=== PATIENT | female | born 1940 | race Caucasian/White ===

== ENCOUNTER 2017-06-10 08:09 | Day surgery (SDC) | payer MEDICARE ==
[2017-06-10] MEDS ORDERED: LORazepam 1 MG TAB SL (08:45)
[2017-06-10] MEDS ORDERED: Hold AM Insulin & AM Hypoglycemic medications in diabetic patients (08:45)
[2017-06-10] MEDS ORDERED: LACTATED RINGER'S 1000 ML IV (09:00)
[2017-06-10] MEDS ORDERED: SODIUM CHLORID 0.9% 500 ML IV (09:00)
[2017-06-10] MEDS ORDERED: METOPROLOL TARTRATE 25 MG TAB PO (09:00)
[2017-06-10 09:32] LABS: AUTOMATED NEUTROPHIL # 4.3 TH/MM3 (1.8-7.7); BASOPHIL % 0.4 % (0.0-2.0); EOSINOPHIL # 0.1 TH/MM3 (0-0.4); EOSINOPHIL % 1.5 % (0.0-4.0); HEMATOCRIT 36.4 % (35.0-46.0); HEMO FLAGS DIFF FINAL; HEMOGLOBIN 12.1 GM/DL (11.6-15.3); LYMPH % 23.6 % (9.0-44.0); LYMPHOCYTE # 1.5 TH/MM3 (1.0-4.8); MEAN CELL VOLUME 86.4 FL (80.0-100.0); MEAN CORPUSCULAR HEMOGLOBIN 28.6 PG (27.0-34.0); MEAN CORPUSCULAR HGB CONC 33.1 % (32.0-36.0); MEAN PLATELET VOLUME 9.6 FL (7.0-11.0); MONO % 7.3 % (0.0-8.0); MONOCYTE # 0.5 TH/MM3 (0-0.9); NEUT % 67.2 % (16.0-70.0); PLATELET COUNT 203 TH/MM3 (150-450); RED BLOOD COUNT 4.21 MIL/MM3 (4.00-5.30); WHITE BLOOD COUNT 6.4 TH/MM3 (4.0-11.0)
[2017-06-10 09:38] LABS: APTT (PATIENT) 23.1 SEC (24.3-30.1); INTERNATIONAL NORMALIZED RATIO 1.1 RATIO; PROTHROMBIN TIME - PATIENT 10.7 SEC (9.8-11.6)
[2017-06-10 09:43] LABS: ANION GAP 11 MEQ/L (5-15); BICARBONATE 27.5 MEQ/L (21.0-32.0); BLOOD UREA NITROGEN 27 MG/DL (7-18); CHLORIDE 100 MEQ/L (98-107); CREATININE 1.31 MG/DL (0.50-1.00); GLOMERULAR FILTRATION RATE 40 ML/MIN (>89); GLUCOSE,RANDOM 223 MG/DL (74-106); POTASSIUM 4.1 MEQ/L (3.5-5.1); SODIUM (NA) 138 MEQ/L (136-145)
[2017-06-10] MEDS: MUPIROCIN 2% OINT 1 APPLIC/GM SYR NASAL (09:54)
[2017-06-10] MEDS: CHLORHEXIDINE GLUCONATE 2 % 1 PACK (2 CLOTHS) TOPICAL (09:54)
[2017-06-10] MEDS: VANCOMYCIN 1000 MG/NS 250 ML IV (11:33)
[2017-06-10] MEDS: ceFAZolin 2 GM PREMIX 50 ML IV ×2 (11:33→18:25)
[2017-06-10] MEDS: ePHEDrine/NS 25 MG/5 ML SYRINGE IV (12:00)
[2017-06-10] MEDS: PROPOFOL 200 MG/20 ML AMP IV (12:00)
[2017-06-10] MEDS: LIDOCAINE HCL 1% PF 5 ML SYRINGE OTHER (12:00)
[2017-06-10] MEDS: ONDANSETRON HCL 4 MG/2 ML VIAL IV (12:00)
[2017-06-10] MEDS ORDERED: RESP: ALBUTEROL 0.63 MG/3 ML NEB (PRN) NEB (13:45)
[2017-06-10] MEDS ORDERED: ACETAMINOPHEN/CODEINE 300 MG/30 MG TAB PO (13:45)
[2017-06-10] MEDS ORDERED: SODIUM CHLORIDE 0.9% FLUSH 10 ML FLUSH IV FLUSH (13:45)
[2017-06-10] MEDS ORDERED: DO NOT ADM ANY ANTICOAGULANT DRUGS (14:50)
[2017-06-10] MEDS: metFORMIN HCL 500 MG TAB PO (18:00)
[2017-06-10] MEDS: GABAPENTIN 300 MG CAP PO (18:24)
[2017-06-10] MEDS: ACETAMINOPHEN/CODEINE 300 MG/30 MG TAB PO (20:59)
[2017-06-10] MEDS: FUROSEMIDE 40 MG TAB PO (20:59)
[2017-06-10] MEDS: CARVEDILOL 6.25 MG TAB PO ×2 (21:00→21:02)
[2017-06-10] MEDS: ATORVASTATIN 80 MG TAB PO (21:00)
[2017-06-10] MEDS: SODIUM CHLORIDE 0.9% FLUSH 10 ML FLUSH IV FLUSH (21:02)
[2017-06-11] MEDS: ceFAZolin 2 GM PREMIX 50 ML IV ×2 (04:26→10:16)
[2017-06-11] MEDS: ACETAMINOPHEN/CODEINE 300 MG/30 MG TAB PO (08:06)
[2017-06-11] MEDS: MULTIVITAMIN TAB PO (08:06)
[2017-06-11] MEDS: GABAPENTIN 300 MG CAP PO ×3 (08:06→17:33)
[2017-06-11] MEDS: SACUBITRIL/VALSARTAN 24 MG-26 MG TAB PO (08:07)
[2017-06-11] MEDS: ASPIRIN EC 81 MG TABEC PO (08:07)
[2017-06-11] MEDS: FUROSEMIDE 40 MG TAB PO ×2 (08:07→21:00)
[2017-06-11] MEDS: CLOPIDOGREL 75 MG TAB PO (08:08)
[2017-06-11] MEDS: SODIUM CHLORIDE 0.9% FLUSH 10 ML FLUSH IV FLUSH ×2 (08:09→21:49)
[2017-06-11] MEDS: metFORMIN HCL 500 MG TAB PO ×2 (08:12→15:53)
[2017-06-11] MEDS: NS 1000 ML IV (08:12)
[2017-06-11] MEDS: NIFEdipine 60 MG SUSTAINED RELEASE TAB PO (08:54)
[2017-06-11] MEDS: CARVEDILOL 6.25 MG TAB PO ×2 (08:54→21:00)
[2017-06-11] MEDS: ATORVASTATIN 80 MG TAB PO (21:45)
[2017-06-11] MEDS ORDERED: DEXTROSE 50% IN WATER 50 ML VIAL(D50) IV PUSH (23:15)
[2017-06-11] MEDS ORDERED: GLUCAGON 1 MG/ML VIAL OTHER (23:15)
[2017-06-11] MEDS: MEDIUM DOSE INSULIN NOVOLOG SUPPLEMENTAL SCALE SQ (23:28)
[2017-06-12] MEDS ORDERED: INSULIN ASPART SUPPLEMENTAL SCALE SQ (08:00)
[2017-06-12] MEDS: MEDIUM DOSE INSULIN NOVOLOG SUPPLEMENTAL SCALE SQ ×2 (08:00→12:00)
[2017-06-12] MEDS: MULTIVITAMIN TAB PO (08:29)
[2017-06-12] MEDS: GABAPENTIN 300 MG CAP PO ×3 (08:29→17:13)
[2017-06-12] MEDS: ASPIRIN EC 81 MG TABEC PO (08:30)
[2017-06-12] MEDS: CLOPIDOGREL 75 MG TAB PO (08:31)
[2017-06-12] MEDS: NS 1000 ML IV (08:32)
[2017-06-12] MEDS: CARVEDILOL 6.25 MG TAB PO (08:40)
[2017-06-12] MEDS: FUROSEMIDE 40 MG TAB PO ×2 (08:40→21:00)
[2017-06-12] MEDS: SACUBITRIL/VALSARTAN 24 MG-26 MG TAB PO (08:40)
[2017-06-12] MEDS: NIFEdipine 30 MG SUSTAINED RELEASE TAB PO (08:41)
[2017-06-12] MEDS: metFORMIN HCL 500 MG TAB PO ×2 (08:41→17:13)
[2017-06-12] MEDS: SODIUM CHLORIDE 0.9% FLUSH 10 ML FLUSH IV FLUSH ×2 (08:45→21:00)
[2017-06-12] MEDS ORDERED: DEXTROSE 50% IN WATER 50 ML VIAL(D50) IV PUSH (09:00)
[2017-06-12] MEDS ORDERED: GLUCAGON 1 MG/ML VIAL OTHER (09:00)
[2017-06-12] MEDS: INSULIN DETEMIR 100 UNITS/ML VIAL SQ ×2 (10:30→21:00)
[2017-06-12] MEDS: INSULIN ASPART SUPPLEMENTAL SCALE SQ ×3 (12:00→21:00)
[2017-06-12] MEDS: CARVEDILOL 3.125 MG TAB PO (21:00)
[2017-06-12] MEDS: ATORVASTATIN 80 MG TAB PO (21:06)
[2017-06-13] MEDS: INSULIN ASPART SUPPLEMENTAL SCALE SQ ×4 (08:00→21:13)
[2017-06-13] MEDS: NS 1000 ML IV (08:45)
[2017-06-13] MEDS: SACUBITRIL/VALSARTAN 24 MG-26 MG TAB PO ×2 (09:00→14:08)
[2017-06-13] MEDS: MULTIVITAMIN TAB PO (09:00)
[2017-06-13] MEDS: CLOPIDOGREL 75 MG TAB PO (09:00)
[2017-06-13] MEDS: SODIUM CHLORIDE 0.9% FLUSH 10 ML FLUSH IV FLUSH ×2 (09:00→21:12)
[2017-06-13] MEDS: ASPIRIN EC 81 MG TABEC PO (09:00)
[2017-06-13] MEDS: INSULIN DETEMIR 100 UNITS/ML VIAL SQ ×2 (09:00→21:13)
[2017-06-13] MEDS: FUROSEMIDE 40 MG TAB PO ×2 (09:00→21:00)
[2017-06-13] MEDS: CARVEDILOL 3.125 MG TAB PO ×3 (09:00→21:00)
[2017-06-13] MEDS: GABAPENTIN 300 MG CAP PO ×3 (09:00→17:41)
[2017-06-13] MEDS: metFORMIN HCL 500 MG TAB PO ×2 (09:00→17:42)
[2017-06-13] MEDS: ONDANSETRON HCL 4 MG/2 ML VIAL IV PUSH (10:30)
[2017-06-13] MEDS: ATORVASTATIN 80 MG TAB PO (21:12)
[2017-06-14] MEDS: NS 1000 ML IV (08:45)
[2017-06-14] MEDS: INSULIN ASPART SUPPLEMENTAL SCALE SQ ×4 (10:12→20:42)
[2017-06-14] MEDS: MULTIVITAMIN TAB PO (10:12)
[2017-06-14] MEDS: INSULIN DETEMIR 100 UNITS/ML VIAL SQ ×2 (10:12→20:42)
[2017-06-14] MEDS: metFORMIN HCL 500 MG TAB PO ×2 (10:12→17:04)
[2017-06-14] MEDS: GABAPENTIN 300 MG CAP PO ×3 (10:12→17:04)
[2017-06-14] MEDS: FUROSEMIDE 40 MG TAB PO ×2 (10:13→20:42)
[2017-06-14] MEDS: SACUBITRIL/VALSARTAN 24 MG-26 MG TAB PO (10:13)
[2017-06-14] MEDS: CLOPIDOGREL 75 MG TAB PO (10:13)
[2017-06-14] MEDS: ASPIRIN EC 81 MG TABEC PO (10:13)
[2017-06-14] MEDS: SODIUM CHLORIDE 0.9% FLUSH 10 ML FLUSH IV FLUSH ×2 (10:14→20:41)
[2017-06-14] MEDS: CARVEDILOL 3.125 MG TAB PO ×2 (10:14→20:42)
[2017-06-14] MEDS: ATORVASTATIN 80 MG TAB PO (20:42)
[2017-06-15] MEDS: ACETAMINOPHEN/CODEINE 300 MG/30 MG TAB PO (00:19)
[2017-06-15] MEDS: INSULIN ASPART SUPPLEMENTAL SCALE SQ ×4 (08:00→20:38)
[2017-06-15] MEDS: SODIUM CHLORIDE 0.9% FLUSH 10 ML FLUSH IV FLUSH ×2 (08:40→20:37)
[2017-06-15] MEDS: NS 1000 ML IV (08:40)
[2017-06-15] MEDS: CARVEDILOL 3.125 MG TAB PO ×3 (08:41→20:37)
[2017-06-15] MEDS: ASPIRIN EC 81 MG TABEC PO (08:41)
[2017-06-15] MEDS: metFORMIN HCL 500 MG TAB PO ×2 (08:41→17:13)
[2017-06-15] MEDS: GABAPENTIN 300 MG CAP PO ×3 (08:41→17:13)
[2017-06-15] MEDS: CLOPIDOGREL 75 MG TAB PO (08:42)
[2017-06-15] MEDS: SACUBITRIL/VALSARTAN 24 MG-26 MG TAB PO (08:42)
[2017-06-15] MEDS: MULTIVITAMIN TAB PO (08:42)
[2017-06-15] MEDS: FUROSEMIDE 40 MG TAB PO ×3 (08:42→20:37)
[2017-06-15] MEDS: INSULIN DETEMIR 100 UNITS/ML VIAL SQ ×2 (08:42→20:37)
[2017-06-15] MEDS: ATORVASTATIN 80 MG TAB PO (20:37)
[2017-06-16] MEDS: GABAPENTIN 300 MG CAP PO ×3 (08:04→17:13)
[2017-06-16] MEDS: MULTIVITAMIN TAB PO (08:04)
[2017-06-16] MEDS: ASPIRIN EC 81 MG TABEC PO (08:04)
[2017-06-16] MEDS: metFORMIN HCL 500 MG TAB PO ×2 (08:04→17:13)
[2017-06-16] MEDS: CARVEDILOL 3.125 MG TAB PO ×2 (08:05→21:00)
[2017-06-16] MEDS: CLOPIDOGREL 75 MG TAB PO (08:05)
[2017-06-16] MEDS: NS 1000 ML IV (08:05)
[2017-06-16] MEDS: INSULIN ASPART SUPPLEMENTAL SCALE SQ ×4 (08:05→21:35)
[2017-06-16] MEDS: SACUBITRIL/VALSARTAN 24 MG-26 MG TAB PO (08:06)
[2017-06-16] MEDS: FUROSEMIDE 40 MG TAB PO (08:06)
[2017-06-16] MEDS: INSULIN DETEMIR 100 UNITS/ML VIAL SQ ×2 (08:06→21:00)
[2017-06-16] MEDS: SODIUM CHLORIDE 0.9% FLUSH 10 ML FLUSH IV FLUSH ×2 (08:08→21:00)
[2017-06-16] MEDS: IOHEXOL 350 MG/ML 50 ML BTL (for Cath Lab) OTHER (19:30)
[2017-06-16] MEDS: LIDOCAINE HCL 1% PF 30 ML VIAL (19:31)
[2017-06-16] MEDS: VANCOMYCIN 500 MG VIAL (19:31)
[2017-06-16] MEDS: LIDOCAINE HCL 2% 20 ML VIAL ×2 (19:31→19:32)
[2017-06-16] MEDS: HEPARIN-NS/PF FLUSH BAG 1,000 ML IV FLUSH (19:31)
[2017-06-16] MEDS: FAMOTIDINE 20 MG/2 ML VIAL (19:32)
[2017-06-16] MEDS: HEPARIN SODIUM - IV 10,000 UNITS/10 ML VIAL (19:32)
[2017-06-16] MEDS: diphenhydrAMINE HCL 50 MG/ML VIAL (19:32)
[2017-06-16] MEDS: HYDROCORTISONE SOD SUCCINATE 100 MG VIAL (19:32)
[2017-06-16] MEDS: ATORVASTATIN 80 MG TAB PO (21:00)
[2017-06-17] MEDS: INSULIN ASPART SUPPLEMENTAL SCALE SQ (07:13)
[2017-06-17] MEDS: INSULIN DETEMIR 100 UNITS/ML VIAL SQ (07:54)
[2017-06-17] MEDS: GABAPENTIN 300 MG CAP PO (07:55)
[2017-06-17] MEDS: metFORMIN HCL 500 MG TAB PO (07:55)
[2017-06-17] MEDS: ASPIRIN EC 81 MG TABEC PO (07:55)
[2017-06-17] MEDS: CLOPIDOGREL 75 MG TAB PO (07:55)
[2017-06-17] MEDS: SODIUM CHLORIDE 0.9% FLUSH 10 ML FLUSH IV FLUSH (07:56)
[2017-06-17] MEDS: NS 1000 ML IV (07:56)
[2017-06-17] MEDS: CARVEDILOL 3.125 MG TAB PO (07:56)
[2017-06-17] MEDS: FUROSEMIDE 40 MG TAB PO (07:56)
[2017-06-17] MEDS: SACUBITRIL/VALSARTAN 24 MG-26 MG TAB PO (07:56)
[2017-06-17] MEDS: MULTIVITAMIN TAB PO (07:56)
== END 2017-06-17 10:30 | disposition home health service (06) ==
LOC: HDOC 08:09 → HDIC 08:09 → HCPC 18:07
DX: I11.0 Hypertensive heart disease with heart failure (principal); I50.9 Heart failure, unspecified; I42.0 Dilated cardiomyopathy; I25.5 Ischemic cardiomyopathy; I47.2 Ventricular tachycardia; I45.89 Other specified conduction disorders; I49.3 Ventricular premature depolarization; R06.02 Shortness of breath; I25.10 Atherosclerotic heart disease of native coronary artery without angina pectoris; I73.9 Peripheral vascular disease, unspecified; R53.83 Other fatigue; E11.9 Type 2 diabetes mellitus without complications; G47.33 Obstructive sleep apnea (adult) (pediatric); Z87.891 Personal history of nicotine dependence; Z79.82 Long term (current) use of aspirin; Z79.84 Long term (current) use of oral hypoglycemic drugs; Z79.01 Long term (current) use of anticoagulants
CPT/HCPCS: 00530; 33225; 33249; 71045; 80048; 82948; 85025; 85610; 85730; 86850; 86900; 86901; 93005; 93620; 97110-GP; 97116-GP; 97162-GP; 97530-GP

== ENCOUNTER 2017-10-02 05:49 | Inpatient (IN) ==
[2017-10-02] MEDS ORDERED: ceFAZolin 2 GM Premix Inj 2 GM/100 ML BAG IV.SIG ONE (06:20)
[2017-10-02] MEDS ORDERED: Sugammadex Inj 200 MG/2 ML Vial IV.PUSH ONE (06:24)
[2017-10-02] MEDS ORDERED: Sodium Chloride 0.9% Irr Bot 500 ML, ceFAZolin Inj 500 MG IRRIGATION SCH ×2 (06:45)
[2017-10-02] MEDS ORDERED: Chlorhexidine 4% Topical 120 APPLIC/120 ML Bottle TOPICAL SCH (06:45)
[2017-10-02] MEDS ORDERED: ceFAZolin Inj 2,000 MG in Sodium Chlor 0.9% Inj 80 ML IV.SIG SCH (07:00)
[2017-10-02] MEDS ORDERED: Chlorhexidine Gluconate 2% 1 Pack (2 Cloths) TOPICAL SCH (07:15)
[2017-10-02] MEDS ORDERED: Metoprolol Tartrate 25 MG Tablet PO SCH (07:15)
[2017-10-02] MEDS ORDERED: Sodium Chlor 0.9% Inj 500 ML IV.SIG SCH (08:00)
[2017-10-02] MEDS ORDERED: Bisacodyl 10 MG Supp RECTAL PRN (10:26)
[2017-10-02] MEDS ORDERED: Acetaminophen 325 MG Tablet PO PRN (10:26)
[2017-10-02] MEDS ORDERED: Post-op Orders (for Pharmacy) OTHER STA (10:26)
--- NOTE | 2017-10-02 10:41 | P.OP ---
Date of procedure: 10/02/17 Anesthesia: GETA Surgeon: Vivek Barnett MD Operation and Findings: PREOPERATIVE DIAGNOSIS 1. Cardiomyopathy 2. CHF 3. Severe Left Ventricular Dysfunction 4. Diabetes mellitus 5. Coronary artery disease status post coronary artery bypass grafting 6. Morbid obesity POSTOPERATIVE DIAGNOSIS same PROCEDURES 1. Left Lateral Mini-Thoracotomy 2. Epicardial Left Ventricular Lead Placement 3. Lysis of Myocardial Adhesions 4. Intercostal nerve Block. SURGEON Vivek Barnett MD BALLOON DIPPER Gisselle Teixeira [facility] General Double-lumen endotracheal. SUBASSEMBLER HALEY Treadwell MD OPERATIVE TIME Please see record. COMPLICATIONS None. INDICATION FOR PROCEDURE The patient is a 76yo lady with cardiomyopathy, CAD s/p previous CABG and recurrent CHF who is being brought to the operating room for epicardial left ventricular lead placement following attempted percutaneous CS lead placement. DESCRIPTION OF PROCEDURE The patient was brought to the operating suite and placed in supine position with the left chest slightly elevated. Following satisfactory induction of general endotracheal anesthesia, the patient was prepped and draped in the usual sterile fashion. A mini-thoracotomy (5 cm) was then performed in the 4th ICS anterior axillary line and carried down to the pleura. With gentle sharp and blunt dissection, the left pleural space was entered. The pericardium was identified. The densely adherent lung was dissected free from the pericardial surface. The pericardium was opened and the underlying myocardium dissected free with careful lysis of adhesions from the previous CABG with care being taken to avoid direct or traction injury to the neurovascular bundle, and viable left ventricular muscle identified. A [employer] LV screw in lead was placed on the ventricular surface. Serial #[id number], REF # [id number]. Parameters measured were excellent with threshold of 0.9 v at 0.4 ms and impedance of 476 ohms. The previously closed infraclavicular incision was opened and the pocket irrigated with antibiotic solution. The leads to the old generator device were removed and the new device brought into the surgical field. The new device was a [employer] serial #[id number], REF #[id number]. The epicardial lead was tunneled and connected to the generator device as were the other leads. The coronary sinus lead was capped and buried in place. The generator was anchored into the pocket using an interrupted 2-0 Ethibond stitch. Strict hemostasis was assured and the closure undertaken. A #24-Sami Florentino drain was placed in the pleural space. Intercostal nerve block was performed at the level of the incision and 2 rib spaces above and below using Exparel solution. The intercostal space was reapproximated with a single #2 Vicryl stitch. Wounds were closed with 2-0, 3-0, and 4-0 Monocryl. The patient tolerated the procedure well and postoperatively went to recovery in stable condition.
[2017-10-02] MEDS ORDERED: fentaNYL Citrate Inj 100 MCG/2 ML Ampul ONE (11:20)
[2017-10-02] MEDS ORDERED: *morphine SULFATE 4 MG/ML PERIprocedure ONLY ONE (11:39)
--- NOTE | 2017-10-02 11:49 | XR ---
EXAM DATE: 10/02/2017 11:40 AM EDT AGE/SEX: 76 years / Female INDICATIONS: Post thoracotomy. CLINICAL DATA: This is the patient's initial encounter. Patient reports that signs and symptoms have been present for 1 day and indicates a pain score of 8/10. MEDICAL/SURGICAL HISTORY: None. Pacemaker. [place] [facility] [facility] [place]. . FINDINGS: Multilead AICD/pacemaker in place with postsurgical features of prior median sternotomy. Cardiac silh ouette is enlarged with indistinct central pulmonary vascularity. Mild diffuse interstitial prominenc e with minimal left lower lobe airspace disease. Remainder of exam is unchanged. CONCLUSION: 1. Cardiomegaly with mild positive fluid balance. 2. No significant pneumothorax. 3. Left lower lobe airspace disease, likely atelectasis. Electronically signed by: Saw Best MD 10/02/2017 11:47 AM EDT
[2017-10-02] MEDS ORDERED: Neostigmine Inj 5 MG/5 ML Syringe IV.PUSH ONE (12:00)
[2017-10-02] MEDS ORDERED: Glycopyrrolate Inj 1 MG/5 ML Syringe IV.PUSH ONE (12:00)
[2017-10-02] MEDS ORDERED: Lidocaine PF 1% Inj 5 ML Syringe INFILTRATN ONE (12:00)
[2017-10-02] MEDS ORDERED: Phenylephrine/NS 1000 MCG/10ML Syringe IV.PUSH ONE (12:00)
[2017-10-02] MEDS: Ketorolac Inj 30 MG/ML (IVP) Vial IV.PUSH SCH ×2 (12:11→17:50)
--- NOTE | 2017-10-02 14:47 | P.PNCV ---
- Note Subjective/Hospital Course: 76/ female initially seen 09/18/17 who was then admitted for biventricular pacer defibrillator , removal, biventricular pacer defibrillator replacement, atrial lead extraction, RV lead extraction, LV lead extraction with new RV lead, new LV lead insertion on 09/17/2017. patient has a history of congestive heart failure with ejection fraction of 25% on oxygen and medical therapy. Her previous biventricular pacer defibrillator was implanted in 2018. There was some lead dislodgement. Apparently, she was playing with the actual device. The decision was made for new lead placement. After the lead was placed, the LV lead was unable to capture, most likely pulled back. Dr. Barnett was consulted to evaluate for epicardial lead placement. However, she was stable enough to be able to go home and come back at a later date. She has had a recent fall where she has obtained significant bruising to the left side of her face into her left orbital area, also to her left breast. PAST MEDICAL HISTORY:Includes dilated cardiomyopathy, congestive heart failure, diabetes mellitus type 2, hyperlipidemia, hypertension, prior [place], obstructive sleep apnea, osteoarthritis, peripheral arterial disease, spinal stenosis, history of paroxysmal ventricular tachycardia. 10/02 pt electively admitted for surgery 1. Left Lateral Mini-Thoracotomy 2. Epicardial Left Ventricular Lead Placement 3. Lysis of Myocardial Adhesions 4. Intercostal nerve Block. Objective: Vital Signs - 24 hr 10/02/17 06:41 10/02/17 11:07 10/02/17 11:15 Temperature 97.8 F 97.5 F L Pulse Rate 62 84 80 Respiratory Rate 16 22 23 Blood Pressure 115/62 123/58 L Pulse Oximetry 94 L 98 98 10/02/17 11:30 10/02/17 11:45 10/02/17 12:00 Temperature Pulse Rate 78 77 76 Respiratory Rate 21 21 21 Blood Pressure 151/63 H 148/65 H 147/60 H Pulse Oximetry 94 L 93 L 93 L 10/02/17 12:10 10/02/17 12:30 10/02/17 12:42 Temperature 97.8 F 97.5 F L Pulse Rate 77 79 Respiratory Rate 18 17 17 Blood Pressure 139/56 L 138/60 Pulse Oximetry 93 L 96 10/02/17 12:53 Temperature Pulse Rate Respiratory Rate 17 Blood Pressure Pulse Oximetry Labs: Laboratory Results - last 12 hr 10/02/17 10/02/17 10/02/17 06:30 06:33 11:15 POC Glucose 162 H 238 H Blood Type A Positive Blood Type Recheck Required Antibody Screen Negative 10/02/17 13:59 POC Glucose 231 H Blood Type Blood Type Recheck Antibody Screen - Plan (1) CHF (congestive heart failure), NYHA class III (1) CHF (congestive heart failure), NYHA class III Qualifiers: Congestive heart failure chronicity: acute on chronic
--- NOTE | 2017-10-02 14:51 | P.DCO ---
- Diagnosis (2) CHF (congestive heart failure), NYHA class III - Home Health Nursing Order: Medical education, Signs/symptoms of disease process, CHF education, Wound care and dressing changes, Nursing assessment with vital signs Instructions: Thoracic Surgery patients Mandatory frequency Assess and evaluation, 2-3 x a week for one week Initial visit 1. Review post chest surgery instructions chest precautions, Activity, Elastic hose, Incision care, Driving, Incentive spirometry, Smoking, Morral , Work and other) 2. Need Betadine to paint incision 3. Medication reconciliation 4. Importance of follow up care/ check on appointments 5. Make calendar record temperature daily 6. When to call Home nurse, review instructions, phone list 7. Incentive Spirometry, demonstration Visit 1- Begin discharge instruction for patient family and/ or caregiver using teach back method- 1. Signs and symptoms of infection 2. Disease characteristics 3. Medicines and side effects 4. Foods and nutrition/ appetite 5. Infection control/ hand washing/ hygiene Visit 2- Continue teaching 1. Discharge instructions- include additional information on smoking cessation , Visit 3- Continue teaching- 1. Cough and deep breathing, incision monitoring. For any questions please call : / SubC Control Cardiothoracic Surgery Incentive spirometry Q1 hr x 10, while awake, also use acapella device hourly whole Chest wall precautions: NO pushing or pulling, ( pt must use chest pillow support chest with all activities and with coughing Daily incision care: ok to shower ( 48hrs after chest tube removed) and then daily, no tub bath. Wash all incisions with liquid dial soap, clean wash cloth to each site, rinse and pat dry. Observe for any signs of infection, such as drainage which is dark yellow, feliciano, green or foul smelling. Immediately report to the surgeon any drainage from the chest incision, or legs, and for any abnormal drainage from the chest tube sites. Notify surgeon if any temp > 101.5 degrees F. When specialty dressing removed/ or if you do not have one, continue to shower daily as above, then rinse and pat incision dry and paint with betadine daily x 5 days. Allow steri strips to fall off if you have any. Avoid lotions, creams, salves, oils, etc. for the first month F/U appointment: as per NH instructions: PCP in 2 weeks, CV surgeon 2 weeks, Labeling Associate 3-4 weeks For any questions regarding incisions/ dressing / meds / post op care or above Symptoms, Saturday 8am-5pm Heart & Vascular Surgery Office ( Dr. Barnett & Dr. Gonzalez), After Hours / Nights (5pm -8am) Weekends and Holidays Please call [facility] Card[facility] ([facility]) Charge Nurse - Certification I have seen patient Patsy Butt on 10/02/17. My clinical findings support the need for the requested home health care services because: Deconditioned with increased weakness I certify that my clinical findings support that this patient is homebound because: Post-op weakness (2) CHF (congestive heart failure), NYHA class III Qualifiers: Congestive heart failure chronicity: acute on chronic
[2017-10-02] MEDS ORDERED: Dextrose 50% in Water 50 ML Vial IV.PUSH PRN (18:07)
[2017-10-02] MEDS: Insulin NovoLOG Aspart Correctional Sugar Inj SQ SCH (18:20)
[2017-10-02] MEDS: Carvedilol 12.5 MG Tablet PO SCH (20:46)
[2017-10-02] MEDS: Senna/Docusate Sodium 8.6/50 MG Tablet PO SCH (20:46)
[2017-10-02] MEDS: Gabapentin 300 MG Capsule PO SCH (20:46)
[2017-10-03] MEDS: Insulin NovoLOG Aspart Correctional Sugar Inj SQ SCH ×4 (00:03→17:23)
[2017-10-03] MEDS: Ketorolac Inj 30 MG/ML (IVP) Vial IV.PUSH SCH ×2 (00:04→06:08)
[2017-10-03 04:41] LABS: Carbon Dioxide 23.1 meq/L (21.0-32.0); Potassium 5.2 meq/L (3.5-5.1)
[2017-10-03 04:50] LABS: Hematocrit 27.9 % (35.0-46.0); Hemoglobin 9.1 gm/dL (11.6-15.3); Lymph # (Auto) 1.2 th/mm3 (1.0-4.8); Mean Corpuscular HGB Conc 32.8 % (32.0-36.0); Mean Corpuscular Hemoglobin 29.1 pg (27.0-34.0); Mean Corpuscular Volume 88.8 fL (80.0-100.0); Mean Platelet Volume 10.6 fL (7.0-11.0); Mono # (Auto) 0.5 th/mm3 (0.0-0.9); Neut # (Auto) 6.9 th/mm3 (1.8-7.7); Platelet Count 164 th/mm3 (150-450); Red Blood Count 3.14 mil/mm3 (4.00-5.30); Red Cell Distribution Width 16.7 % (11.6-17.2); White Blood Count 8.7 th/mm3 (4.0-11.0)
--- NOTE | 2017-10-03 06:17 | XR ---
EXAM DATE: 10/03/2017 5:58 AM EDT AGE/SEX: 76 years / Female INDICATIONS: Shortness of breath, possible pneumothorax. CLINICAL DATA: This is the patient's subsequent encounter. Patient reports that signs and symptoms h ave been present for 2 days and indicates a pain score of 7/10. MEDICAL/SURGICAL HISTORY: None. Pacemaker. Thoracotomy. [place] [facility] [place] [facility] [place] . FINDINGS: Patient is status post sternotomy. There is a pacing device in place in the left chest. The cardiac s ilhouette is enlarged. The lungs are grossly clear. There appears to be a possible left chest tube pr esent. A pneumothorax is not seen. CONCLUSION: No pneumothorax. Cardiomegaly. The patient is status post sternotomy and has a pacing device in place. Electronically signed by: Ricardo Brown MD 10/03/2017 6:16 AM EDT
[2017-10-03] MEDS: Gabapentin 300 MG Capsule PO SCH ×2 (10:06→20:56)
[2017-10-03] MEDS: Senna/Docusate Sodium 8.6/50 MG Tablet PO SCH ×2 (10:06→20:54)
[2017-10-03] MEDS: Furosemide 40 MG Tablet PO SCH (10:07)
[2017-10-03] MEDS: Carvedilol 12.5 MG Tablet PO SCH ×2 (10:08→20:54)
[2017-10-03] MEDS: Enoxaparin Inj 30 MG/0.3 ML Syringe SQ SCH (10:10)
--- NOTE | 2017-10-03 15:06 | P.PNCV ---
- Note Subjective/Hospital Course: 76/ female initially seen 09/18/17 who was then admitted for biventricular pacer defibrillator , removal, biventricular pacer defibrillator replacement, atrial lead extraction, RV lead extraction, LV lead extraction with new RV lead, new LV lead insertion on 09/17/2017. patient has a history of congestive heart failure with ejection fraction of 25% on oxygen and medical therapy. Her previous biventricular pacer defibrillator was implanted in 2018. There was some lead dislodgement. Apparently, she was playing with the actual device. The decision was made for new lead placement. After the lead was placed, the LV lead was unable to capture, most likely pulled back. Dr. Barnett was consulted to evaluate for epicardial lead placement. However, she was stable enough to be able to go home and come back at a later date. She has had a recent fall where she has obtained significant bruising to the left side of her face into her left orbital area, also to her left breast. PAST MEDICAL HISTORY:Includes dilated cardiomyopathy, congestive heart failure, diabetes mellitus type 2, hyperlipidemia, hypertension, prior [place], obstructive sleep apnea, osteoarthritis, peripheral arterial disease, spinal stenosis, history of paroxysmal ventricular tachycardia. 10/02 pt electively admitted for surgery 1. Left Lateral Mini-Thoracotomy 2. Epicardial Left Ventricular Lead Placement 3. Lysis of Myocardial Adhesions 4. Intercostal nerve Block. 10/03 doing well , chest tube dc without difficulty eval for dc in am / pt request Objective: Vital Signs - 24 hr 10/02/17 15:00 10/02/17 15:34 10/02/17 16:00 Temperature 98.3 F Pulse Rate 83 83 80 Respiratory Rate 17 Blood Pressure 136/60 Pulse Oximetry 95 10/02/17 16:53 10/02/17 17:00 10/02/17 18:00 Temperature Pulse Rate 81 78 98 H Respiratory Rate 18 Blood Pressure Pulse Oximetry 10/02/17 19:00 10/02/17 20:00 10/02/17 20:57 Temperature 98.4 F Pulse Rate 90 88 84 Respiratory Rate 18 18 Blood Pressure 144/64 H Pulse Oximetry 96 95 10/02/17 21:00 10/02/17 22:00 10/02/17 23:00 Temperature 98.6 F Pulse Rate 85 90 85 Respiratory Rate 16 Blood Pressure 144/64 H Pulse Oximetry 98 10/03/17 00:00 10/03/17 01:00 10/03/17 02:00 Temperature Pulse Rate 83 89 88 Respiratory Rate Blood Pressure Pulse Oximetry 10/03/17 03:00 10/03/17 03:20 10/03/17 04:00 Temperature 98.4 F Pulse Rate 83 97 H 89 Respiratory Rate 18 22 Blood Pressure 152/63 H Pulse Oximetry 97 10/03/17 05:00 10/03/17 06:00 10/03/17 06:35 Temperature Pulse Rate 85 83 Respiratory Rate 16 Blood Pressure Pulse Oximetry 10/03/17 07:00 10/03/17 08:00 10/03/17 08:58 Temperature 98.2 F Pulse Rate 80 80 78 Respiratory Rate 18 16 Blood Pressure 129/71 Pulse Oximetry 96 96 GENERAL: A&O x 3 SKIN: Warm and dry. incision intact and well approximated left upper chest / chest tube removed HEAD: Normocephalic. EYES: No scleral icterus. No injection or drainage. NECK: Supple, trachea midline. No JVD or lymphadenopathy. CARDIOVASCULAR: Regular rate and rhythm without murmurs, gallops, or rubs. RESPIRATORY: Breath sounds equal bilaterally. No accessory muscle use. GASTROINTESTINAL: Abdomen soft, non-tender, nondistended. MUSCULOSKELETAL: No cyanosis, or edema. BACK: Nontender without obvious deformity. No CVA tenderness. Labs: Laboratory Results - last 12 hr 10/03/17 10/03/17 10/03/17 03:10 04:00 04:00 WBC 8.7 RBC 3.14 L Hgb 9.1 L Hct 27.9 L MCV 88.8 MCH 29.1 MCHC 32.8 RDW 16.7 Plt Count 164 MPV 10.6 Neut % (Auto) 80.0 H Lymph % (Auto) 14.0 Rusk % (Auto) 6.0 Eos % (Auto) 0.0 Baso % (Auto) 0.0 Neut # (Auto) 6.9 Lymph # (Auto) 1.2 Rusk # (Auto) 0.5 Eos # (Auto) 0.0 Baso # (Auto) 0.0 WBC Differential . Differential Comment Auto diff final Sodium 139 Potassium 5.2 H Chloride 103 Carbon Dioxide 23.1 Anion Gap 13 BUN 38 H Creatinine 1.43 H Estimated GFR 36 L Random Glucose 189 H Calcium 8.0 L Nasal Screen MRSA (PCR) Not detected Result Diagrams: 10/03/17 04:00 10/03/17 04:00 - Plan (2) CHF (congestive heart failure), NYHA class III Plan: resume home meds (3) Status post thoracotomy Plan: chest tube removed check CXR in am ok to dc in am (2) CHF (congestive heart failure), NYHA class III Qualifiers: Congestive heart failure chronicity: acute on chronic
[2017-10-04] MEDS: Insulin NovoLOG Aspart Correctional Sugar Inj SQ SCH ×5 (00:20→23:16)
--- NOTE | 2017-10-04 06:02 | XR ---
EXAM DATE: 10/04/2017 5:57 AM EDT AGE/SEX: 76 years / Female INDICATIONS: Chest tube removal. CLINICAL DATA: This is the patient's subsequent encounter. Patient reports that signs and symptoms h ave been present for 3 days and indicates a pain score of 4/10. MEDICAL/SURGICAL HISTORY: Cardiovascular disease. CABG. COMPARISON: [facility], CHEST 1V SINGLE AP, 10/03/2017. . FINDINGS: The patient is status post sternotomy. The heart size is enlarged. There is a pacing device seen in t he left chest. The lungs are grossly clear. The left chest tube has been removed. A pneumothorax is n ot seen. CONCLUSION: Cardiomegaly. Electronically signed by: Ricardo Brown MD 10/04/2017 6:01 AM EDT
[2017-10-04] MEDS: Carvedilol 12.5 MG Tablet PO SCH ×2 (09:37→21:32)
[2017-10-04] MEDS: Senna/Docusate Sodium 8.6/50 MG Tablet PO SCH ×2 (09:37→21:31)
[2017-10-04] MEDS: Gabapentin 300 MG Capsule PO SCH ×2 (09:39→21:32)
[2017-10-04] MEDS: Furosemide 40 MG Tablet PO SCH (09:39)
[2017-10-04] MEDS: Enoxaparin Inj 30 MG/0.3 ML Syringe SQ SCH (09:42)
--- NOTE | 2017-10-04 15:14 | P.PNCV ---
- Note Subjective/Hospital Course: 76/ female initially seen 09/18/17 who was then admitted for biventricular pacer defibrillator , removal, biventricular pacer defibrillator replacement, atrial lead extraction, RV lead extraction, LV lead extraction with new RV lead, new LV lead insertion on 09/17/2017. patient has a history of congestive heart failure with ejection fraction of 25% on oxygen and medical therapy. Her previous biventricular pacer defibrillator was implanted in 2018. There was some lead dislodgement. Apparently, she was playing with the actual device. The decision was made for new lead placement. After the lead was placed, the LV lead was unable to capture, most likely pulled back. Dr. Barnett was consulted to evaluate for epicardial lead placement. However, she was stable enough to be able to go home and come back at a later date. She has had a recent fall where she has obtained significant bruising to the left side of her face into her left orbital area, also to her left breast. PAST MEDICAL HISTORY:Includes dilated cardiomyopathy, congestive heart failure, diabetes mellitus type 2, hyperlipidemia, hypertension, prior [place], obstructive sleep apnea, osteoarthritis, peripheral arterial disease, spinal stenosis, history of paroxysmal ventricular tachycardia. 10/02 pt electively admitted for surgery 1. Left Lateral Mini-Thoracotomy 2. Epicardial Left Ventricular Lead Placement 3. Lysis of Myocardial Adhesions 4. Intercostal nerve Block. 10/03 doing well , chest tube dc without difficulty eval for dc in am / pt request 10/04 cxr stable, pt now wanting to go to SNF await approval / PT consulted needs walker and assistance to ambulate Objective: Vital Signs - 24 hr 10/03/17 16:00 10/03/17 16:11 10/03/17 17:00 Temperature Pulse Rate 74 74 74 Respiratory Rate 17 Blood Pressure Pulse Oximetry 10/03/17 18:00 10/03/17 19:00 10/03/17 20:00 Temperature 97.7 F Pulse Rate 74 82 82 Respiratory Rate Blood Pressure 122/59 L Pulse Oximetry 93 L 10/03/17 20:41 10/03/17 21:00 10/03/17 22:00 Temperature Pulse Rate 74 90 74 Respiratory Rate 17 Blood Pressure Pulse Oximetry 10/03/17 23:00 10/04/17 00:00 10/04/17 01:00 Temperature 98.4 F Pulse Rate 78 74 75 Respiratory Rate Blood Pressure 123/58 L Pulse Oximetry 95 10/04/17 02:00 10/04/17 03:00 10/04/17 03:40 Temperature 98.2 F Pulse Rate 70 81 81 Respiratory Rate 17 Blood Pressure 105/51 L Pulse Oximetry 92 L 10/04/17 04:00 10/04/17 05:00 10/04/17 06:00 Temperature Pulse Rate 88 68 76 Respiratory Rate Blood Pressure Pulse Oximetry 10/04/17 07:00 10/04/17 08:00 10/04/17 09:00 Temperature 98 F Pulse Rate 80 75 76 Respiratory Rate 18 Blood Pressure 115/58 L Pulse Oximetry 94 L 10/04/17 10:00 10/04/17 10:08 10/04/17 11:00 Temperature 97.9 F Pulse Rate 72 75 70 Respiratory Rate 16 20 Blood Pressure 118/60 Pulse Oximetry 93 L 95 10/04/17 12:00 10/04/17 13:00 10/04/17 14:00 Temperature Pulse Rate 73 70 70 Respiratory Rate Blood Pressure Pulse Oximetry GENERAL: A&O x 3 , weak SKIN: Warm and dry. incision intact left upper lateral chest wall HEAD: Normocephalic. EYES: No scleral icterus. No injection or drainage. NECK: Supple, trachea midline. No JVD or lymphadenopathy. CARDIOVASCULAR: Regular rate and rhythm without murmurs, gallops, or rubs. RESPIRATORY: Breath sounds equal bilaterally. No accessory muscle use. GASTROINTESTINAL: Abdomen soft, non-tender, nondistended. MUSCULOSKELETAL: No cyanosis, or edema. BACK: Nontender without obvious deformity. No CVA tenderness. Labs: Laboratory Results - last 12 hr 10/04/17 10/04/17 06:03 13:17 POC Glucose 254 H 260 H Result Diagrams: 10/03/17 04:00 10/03/17 04:00 Telemetry: NSR - Plan (2) CHF (congestive heart failure), NYHA class III Plan: resume home meds (3) Status post thoracotomy Plan: CXR stable pt now wants to go to [facility] (2) CHF (congestive heart failure), NYHA class III Qualifiers: Congestive heart failure chronicity: acute on chronic
--- NOTE | 2017-10-04 15:34 | P.DS ---
Date of admission: 10/02/17 05:49 Primary care physician: PROVIDER NON STAFF Attending physician on discharge: Vivek Barnett Anticipated date of discharge: 10/04/17 Brief History from admission: 76/ female initially seen 09/18/17 who was then admitted for biventricular pacer defibrillator , removal, biventricular pacer defibrillator replacement, atrial lead extraction, RV lead extraction, LV lead extraction with new RV lead, new LV lead insertion on 09/17/2017. patient has a history of congestive heart failure with ejection fraction of 25% on oxygen and medical therapy. Her previous biventricular pacer defibrillator was implanted in 2018. There was some lead dislodgement. Apparently, she was playing with the actual device. The decision was made for new lead placement. After the lead was placed, the LV lead was unable to capture, most likely pulled back. Dr. Barnett was consulted to evaluate for epicardial lead placement. However, she was stable enough to be able to go home and come back at a later date. She has had a recent fall where she has obtained significant bruising to the left side of her face into her left orbital area, also to her left breast. PAST MEDICAL HISTORY:Includes dilated cardiomyopathy, congestive heart failure, diabetes mellitus type 2, hyperlipidemia, hypertension, prior [place], obstructive sleep apnea, osteoarthritis, peripheral arterial disease, spinal stenosis, history of paroxysmal ventricular tachycardia. DS: Diagnosis - Discharge Diagnosis (1) Stented coronary artery Status: Acute (2) CHF (congestive heart failure), NYHA class III Status: Acute (3) Status post thoracotomy Status: Acute DS: Medications - Discharge Medications Prescriptions: cephalexin [Keflex] 500 mg PO TID #21 cap hydrocodone-acetaminophen 1 tab PO Q6HR PRN #30 tab PRN Reason: Pain Scale 3 To 5 DS: Summary Hospital Course: 10/02 pt electively admitted for surgery 1. Left Lateral Mini-Thoracotomy 2. Epicardial Left Ventricular Lead Placement 3. Lysis of Myocardial Adhesions 4. Intercostal nerve Block. 10/03 doing well , chest tube dc without difficulty eval for dc in am / pt request 10/04 cxr stable, pt now wanting to go to SNF await approval / PT consulted needs walker and assistance to ambulate pt lives alone - Time Spent with Patient Total time spent providing and/or coordinating discharge services: Greater than 30 minutes - Quality: VTE Deep Vein Thrombosis/Pulmonary Embolism Present on Admission: No Exam Vital signs: Vital Signs 10/03/17 16:00 10/03/17 16:11 10/03/17 17:00 Temperature Pulse Rate 74 74 74 Respiratory Rate 17 Blood Pressure Pulse Oximetry 10/03/17 18:00 10/03/17 19:00 10/03/17 20:00 Temperature 97.7 F Pulse Rate 74 82 82 Respiratory Rate Blood Pressure 122/59 L Pulse Oximetry 93 L 10/03/17 20:41 10/03/17 21:00 10/03/17 22:00 Temperature Pulse Rate 74 90 74 Respiratory Rate 17 Blood Pressure Pulse Oximetry 10/03/17 23:00 10/04/17 00:00 10/04/17 01:00 Temperature 98.4 F Pulse Rate 78 74 75 Respiratory Rate Blood Pressure 123/58 L Pulse Oximetry 95 10/04/17 02:00 10/04/17 03:00 10/04/17 03:40 Temperature 98.2 F Pulse Rate 70 81 81 Respiratory Rate 17 Blood Pressure 105/51 L Pulse Oximetry 92 L 10/04/17 04:00 10/04/17 05:00 10/04/17 06:00 Temperature Pulse Rate 88 68 76 Respiratory Rate Blood Pressure Pulse Oximetry 10/04/17 07:00 10/04/17 08:00 10/04/17 09:00 Temperature 98 F Pulse Rate 80 75 76 Respiratory Rate 18 Blood Pressure 115/58 L Pulse Oximetry 94 L 10/04/17 10:00 10/04/17 10:08 10/04/17 11:00 Temperature 97.9 F Pulse Rate 72 75 70 Respiratory Rate 16 20 Blood Pressure 118/60 Pulse Oximetry 93 L 95 10/04/17 12:00 10/04/17 13:00 10/04/17 14:00 Temperature Pulse Rate 73 70 70 Respiratory Rate Blood Pressure Pulse Oximetry 10/04/17 15:16 Temperature Pulse Rate 77 Respiratory Rate 18 Blood Pressure Pulse Oximetry 95 Intake & Output 10/03/17 10/04/17 10/04/17 18:59 06:59 18:59 Intake Total 820 / 820 240 / 240 Output Total 547 / 547 450 / 450 Balance 273 / 273 -210 / -210 Weight 103.5 kg Intake: IV 100 / 100 Ancef Inj 2,000 MG In NS Inj 80 100 / 100 ML @ 200 mls/hr IV.SIG Q8H [facility] Rx#:[id number] Oral 720 / 720 240 / 240 Output: Urine 400 / 400 450 / 450 Pleural Fluid 35 / 35 Estimated Blood Loss 50 / 50 Chest Tube Drainage 62 / Left - Constitutional no acute distress - Routine HEENT Exam Head: Present: normocephalic Eye: Present: EOMI, PERRL, normal accommodation - Routine Chest/Breast/Axilla Exam Chest wall: Present: tenderness Breast: Present: tenderness - Routine Respiratory Exam Present: CTA bilaterally - Routine Cardiovascular Exam Present: RRR, S1, S2 - Routine Abdominal Exam Present: soft, normoactive bowel sounds - Routine Extremities Exam Present: full ROM, pulses intact - Routine Skin Exam Present: intact, wounds Comments: left upper lateral chest wall incision intact and well approximated - Routine Neurological Exam Present: alert, oriented X3, CN II-XII intact Results Procedures completed during hospitalization: 10/02 PROCEDURES 1. Left Lateral Mini-Thoracotomy 2. Epicardial Left Ventricular Lead Placement 3. Lysis of Myocardial Adhesions Labs on day of discharge: Labs from last 24 hours 10/04/17 10/04/17 10/03/17 13:17 06:03 21:03 POC Glucose 260 H 254 H 293 H 10/03/17 15:56 POC Glucose 329 H Preliminary micro results at discharge 10/02/17 09:40 Wound Culture - Preliminary Wound - Other No growth in 48 hours - Impressions ITS Impressions Chest X-Ray 10/04/17 06:00 CONCLUSION: Cardiomegaly. Discharge Plan - Discharge Disposition Patient Disposition: Discharge to SNF - Discharge Condition Condition: Good - Discharge Order Discharge Orders: Discharge Order (Routine); Ordered 10/04/17 Ordered By: Christina Lion - Discharge Details Anticipated Discharge Date: 10/04/17 - Physicians Team Primary Care Provider: NON STAFF,PROVIDER Attending Provider: Vivek Barnett Other Providers: ; [facility] - Rxs /Orders / Referrals /Forms Prescriptions: New cephalexin [Keflex] 250 mg Capsule 500 mg PO TID Qty: 21 RF: 0 hydrocodone-acetaminophen 5-325 mg Tablet 1 tab PO Q6HR PRN (Reason: Pain Scale 3 To 5) Qty: 30 RF: 0 Continue albuterol sulfate 0.63 mg/3 mL Solution For Nebulization 0.63 mg INHALATION QID PRN (Reason: Shortness Of Breath Or Wheezing) aspirin [Aspirin Low Dose] 81 mg Tablet,Delayed Release (Dr/Ec) 81 mg PO DAILY atorvastatin 80 mg Tablet 80 mg PO DAILY carvedilol [Coreg] 25 mg Tablet 25 mg PO BID clopidogrel [Plavix] 75 mg Tablet 75 mg PO DAILY furosemide 40 mg Tablet 40 mg PO DAILY gabapentin 300 mg Tablet Extended Release 24 Hr 900 mg PO BID insulin NPH and regular human [Novolin 70/30 U-100 Insulin] 100 unit/mL (70- 30) Suspension 23 unit SUB-Q AC BREAKFAST insulin NPH and regular human [Novolin 70/30 U-100 Insulin] 100 unit/mL (70- 30) Suspension 18 unit SUB-Q AC DINNER melatonin 3 mg Tablet 3 mg PO HS PRN (Reason: Sleep) metformin 1,000 mg Tablet 1,000 mg PO BID multivitamin Tablet 1 tab PO DAILY sacubitril-valsartan [Entresto] 97-103 mg Tablet 1 tab PO BID Discontinued acetaminophen [Tylenol] 325 mg Tablet 325 mg PO Q4H PRN (Reason: Pain) Referrals: Mike Meraz MD [Physician] - See Instructions (The physician's office will call you to schedule your appointment for 2-3 weeks after your discharge.) Vivek Barnett MD [Physician] - See Instructions ( Your appointment has been scheduled for [Oct 29] at [11:00am] If you cannot make this appointment, please call the office to reschedule ) - Discharge Instructions Additional Instructions: Incentive spirometry Q1 hr x 10, while awake, also use acapella device hourly whole Chest wall precautions: NO pushing or pulling, ( pt must use chest pillow support chest with all activities and with coughing Daily incision care: ok to shower ( 48hrs after chest tube removed) and then daily, no tub bath. Wash all incisions with liquid dial soap, clean wash cloth to each site, rinse and pat dry. Observe for any signs of infection, such as drainage which is dark yellow, feliciano, green or foul smelling. Immediately report to the surgeon any drainage from the chest incision, or legs, and for any abnormal drainage from the chest tube sites. Notify surgeon if any temp > 101.5 degrees F. When specialty dressing removed/ or if you do not have one, continue to shower daily as above, then rinse and pat incision dry and paint with betadine daily x 5 days. Allow steri strips to fall off if you have any. Avoid lotions, creams, salves, oils, etc. for the first month F/U appointment: as per OK instructions: PCP in 2 weeks, CV surgeon 2 weeks, County Engineer 3-4 weeks For any questions regarding incisions/ dressing / meds / post op care or above Symptoms, Saturday 8am-5pm Heart & Vascular Surgery Office ( Dr. Barnett & Dr. Gonzalez), After Hours / Nights (5pm -8am) Weekends and Holidays Please call [facility] Cardiac [facility] Unit ([facility]) Charge Nurse
[2017-10-05] MEDS: Insulin NovoLOG Aspart Correctional Sugar Inj SQ SCH ×2 (06:24→12:14)
[2017-10-05] MEDS: Gabapentin 300 MG Capsule PO SCH (08:37)
[2017-10-05] MEDS: Carvedilol 12.5 MG Tablet PO SCH (08:37)
[2017-10-05] MEDS: Senna/Docusate Sodium 8.6/50 MG Tablet PO SCH (08:37)
[2017-10-05] MEDS: Furosemide 40 MG Tablet PO SCH (08:37)
--- NOTE | 2017-10-05 09:59 | P.PNCV ---
- Note Subjective/Hospital Course: 76/ female initially seen 09/18/17 who was then admitted for biventricular pacer defibrillator , removal, biventricular pacer defibrillator replacement, atrial lead extraction, RV lead extraction, LV lead extraction with new RV lead, new LV lead insertion on 09/17/2017. patient has a history of congestive heart failure with ejection fraction of 25% on oxygen and medical therapy. Her previous biventricular pacer defibrillator was implanted in 2018. There was some lead dislodgement. Apparently, she was playing with the actual device. The decision was made for new lead placement. After the lead was placed, the LV lead was unable to capture, most likely pulled back. Dr. Barnett was consulted to evaluate for epicardial lead placement. However, she was stable enough to be able to go home and come back at a later date. She has had a recent fall where she has obtained significant bruising to the left side of her face into her left orbital area, also to her left breast. PAST MEDICAL HISTORY:Includes dilated cardiomyopathy, congestive heart failure, diabetes mellitus type 2, hyperlipidemia, hypertension, prior [place], obstructive sleep apnea, osteoarthritis, peripheral arterial disease, spinal stenosis, history of paroxysmal ventricular tachycardia. 10/02 pt electively admitted for surgery 1. Left Lateral Mini-Thoracotomy 2. Epicardial Left Ventricular Lead Placement 3. Lysis of Myocardial Adhesions 4. Intercostal nerve Block. 10/03 doing well , chest tube dc without difficulty eval for dc in am / pt request 10/04 cxr stable, pt now wanting to go to SNF await approval / PT consulted needs walker and assistance to ambulate 10/05 Discharge today Objective: Vital Signs - 24 hr 10/04/17 10:00 10/04/17 10:08 10/04/17 11:00 Temperature 97.9 F Pulse Rate 72 75 70 Respiratory Rate 16 20 Blood Pressure 118/60 Pulse Oximetry 93 L 95 10/04/17 12:00 10/04/17 13:00 10/04/17 14:00 Temperature Pulse Rate 73 70 70 Respiratory Rate Blood Pressure Pulse Oximetry 10/04/17 15:00 10/04/17 15:16 10/04/17 16:00 Temperature 98 F Pulse Rate 65 77 65 Respiratory Rate 20 18 Blood Pressure 117/55 L Pulse Oximetry 95 95 10/04/17 17:00 10/04/17 18:00 10/04/17 19:00 Temperature 99.2 F Pulse Rate 62 83 78 Respiratory Rate Blood Pressure 124/59 L Pulse Oximetry 96 10/04/17 20:00 10/04/17 21:00 10/04/17 22:00 Temperature Pulse Rate 80 76 70 Respiratory Rate 20 Blood Pressure Pulse Oximetry 10/04/17 23:00 10/05/17 00:00 10/05/17 01:00 Temperature 98.8 F Pulse Rate 87 73 77 Respiratory Rate 16 Blood Pressure 113/53 L Pulse Oximetry 96 10/05/17 02:00 10/05/17 03:00 10/05/17 04:00 Temperature 98.1 F Pulse Rate 71 62 71 Respiratory Rate 16 Blood Pressure 120/58 L Pulse Oximetry 96 10/05/17 05:00 10/05/17 06:00 10/05/17 08:23 Temperature 98.5 F Pulse Rate 71 66 77 Respiratory Rate 18 Blood Pressure 125/60 Pulse Oximetry 93 L 10/05/17 09:43 Temperature Pulse Rate 80 Respiratory Rate 16 Blood Pressure Pulse Oximetry Labs: Laboratory Results - last 12 hr 10/04/17 10/05/17 23:14 06:20 POC Glucose 285 H 203 H Result Diagrams: 10/03/17 04:00 10/03/17 04:00 - Plan (2) CHF (congestive heart failure), NYHA class III Plan: resume home meds (3) Status post thoracotomy Plan: CXR stable pt now wants to go to [facility] (2) CHF (congestive heart failure), NYHA class III Qualifiers: Congestive heart failure chronicity: acute on chronic
[2017-10-05] MEDS: Enoxaparin Inj 30 MG/0.3 ML Syringe SQ SCH (10:53)
== END 2017-10-05 13:35 ==
LOC: HSDI 05:49 → HCPC 12:36
PROVIDERS: ADMIT Thoracic Surgery (Cardiothoracic Vascular Surgery); ATTEND Thoracic Surgery (Cardiothoracic Vascular Surgery)